=== PATIENT | female | born 1960 | race Two or more races ===

== ENCOUNTER 2023-01-06 21:39 | Emergency (ER) | payer SELFPAY ==
[~2023-01-06] VITALS: Ht 157.5 cm; Wt 95.0 kg
[2023-01-06 21:49] VITALS: O2SAT 100
[2023-01-06 23:42] LABS: BASOPHILS % 0.6 % (0.0-2.0); EOSINOPHILS % 0.5 % (0.0-5.0); HEMATOCRIT. 40.4 % (36.0-48.0); HEMOGLOBIN. 12.9 g/dL (12.0-16.0); MEAN CORPUSCULAR HGB CONC 31.9 g/dL (31.0-37.0); MEAN CORPUSCULAR VOLUME 87.8 fL (81.0-99.0); MONOCYTES % 5.9 % (2.0-8.0); PLATELET 250 x1000/uL (130-400); RED CELL DISTRIBUTION WIDTH 15.8 % (11.6-14.6); WHITE BLOOD COUNT 7.1 x1000/uL (4.5-11.0)
[2023-01-06 23:48] LABS: CHLORIDE 106 mEq/L (98-107); INDEX HEMOLYSI 2 (1-3); INDEX ICTERIC 1 (1-4); INDEX LIPEMIC 1 (1-3); POTASSIUM 4.3 mEq/L (3.5-5.1); SODIUM 137 mEq/L (136-145)
[2023-01-06 23:58] LABS: ALANINE AMINOTRANSFERASE 28 IU/L (13-61); ALBUMIN 3.7 g/dL (3.4-5.0); ASPARTATE AMINOTRANSFERASE 25 IU/L (15-37); BILIRUBIN TOTAL 0.3 mg/dL (0.1-1.0); CALCIUM 9.2 mg/dL (8.5-10.1); CARBON DIOXIDE 26 mEq/L (21-32); CREATININE 0.7 mg/dL (0.6-1.3); GLUCOSE 96 mg/dL (70-105); UREA NITROGEN BLOOD 12 mg/dL (7-21)
[2023-01-07 00:02] LABS: TROPONIN I HIGH SENSITIVITY < 4 ng/L (<54)
[2023-01-07 00:21] LABS: HCG SCREEN NEGATIVE
[2023-01-07] MEDS ORDERED: ASPI-1497 MT (02:27)
[2023-01-07 02:33] VITALS: BP 149/81; PULSE 77; RESP 20; TEMP 98.1
== END 2023-01-07 02:34 | disposition home or self-care (01) ==
LOC: ER 21:39
DX: R07.89 Other chest pain (principal); G43.909 Migraine, unspecified, not intractable, without status migrainosus; Z98.890 Other specified postprocedural states
CPT/HCPCS: 80053; 84703; 85025; 84484; 36415; 93005; 99284; Z7610